=== PATIENT | male | born 1960 | race African-American/Black ===

== ENCOUNTER 2018-03-25 07:48 | Day surgery (SDC) | payer MEDICARE, MEDICAID ==
[~2018-03-25] VITALS: Ht 170.2 cm; Wt 54.5 kg
--- NOTE | ~2018-03-25 | OP ---
PATIENT NAME: GRETA BURTON MEDICAL RECORD: [id number] :64 LOCATION:[facility] ADMISSION DATE: SURGEON: MILES SAVAGE DO DATE OF OPERATION: 03/25/2018 PROCEDURE: Colonoscopy with polypectomy and biopsies. INDICATIONS FOR PROCEDURE: Diarrhea and generalized abdominal pain. SCOPE: BONESUPPORT video pediatric colonoscope. MEDICATIONS: Propofol 500 mg IV per anesthesia. WITHDRAWAL TIME: 34 minutes. ESTIMATED BLOOD LOSS: Minimal. COMPLICATIONS: None. FINDINGS: Informed consent was given. The patient was made comfortable with the above medication. After reaching an adequate level of sedation by slow IV push, the patient was placed on his left side. A digital rectal examination was performed and was normal. The endoscope was then advanced under direct visualization through the rectum to the terminal ileum. The endoscope was slowly withdrawn and mucosa was carefully examined. The prep quality was fair. There were multiple polyps visualized on today's examination. The first 2 were located in the cecum. These were both benign appearing and sessile and ranged in size from 1-3 mm in diameter. They were both removed using hot forceps in 1 piece and completely retrieved. In the ascending colon, there was a single benign appearing sessile polyp, which measured approximately 6 mm in diameter. It was removed using hot snare in 1 piece and completely retrieved. In the transverse colon, there was a single polyp which was benign appearing and sessile and measured approximately 6 mm in diameter. It was removed using hot snare in 1 piece and completely retrieved. In the descending colon, there were four separate polyps. These were of mixed type. One was a flat polyp measuring approximately 9 mm in diameter. It was removed using hot snare in 1 piece and completely retrieved. There was a small defect left from this polyp, so a single endoclip was placed for tissue positioning. This maneuver was successful. There were 3 other polyps which were larger and sessile. They ranged in size from 7 mm to 1 cm. They were all removed using a hot snare. They were all completely removed. Two of these polyps were retrieved and the other was not. In the rectum, there were 2 more sessile polyps, which were benign appearing. They measured approximately 3-5 mm in diameter. They were removed using hot snare in 1 piece and completely retrieved. During this study, there were also random biopsies taken throughout the colon and stool collected for stool study purposes regarding the diarrhea. Retroflexion was performed in the rectum with a normal appearing rectal wall. The endoscope was withdrawn from the patient. The patient tolerated the procedure well and there were no complications. IMPRESSION: 1. Multiple polyps as described above, removed using a combination of hot forceps and a hot snare. 2. Otherwise, normal colonoscopy. Random biopsies were taken and stool was collected for further stool studies. OPERATIVE REPORT [id number] GRETA BURTON PLAN AND RECOMMENDATIONS: 1. Discharge home when recovery parameters are met. 2. Follow up biopsy specimen results. 3. Continue current medications. 4. Recall colonoscopy in 2 years for further surveillance of personal history of polyps. 5. Recommend an upper endoscopy to further evaluate the patient's symptoms. If both endoscopies are negative, a trial of dicyclomine or another anticholinergic could be considered or some cholestyramine 4 grams p.o. b.i.d. TRANSINT:[id number] Voice Confirmation ID: [id number] DOCUMENT ID: [id number] MILES SAVAGE DO at 1255 CC: [id number] DICTATION DATE: 03/25/18 1201 CLIMATE CHANGE ANALYST: 03/25/18 1223 [facility] [address] [place] [address]
[~2018-03-25 07:48] MED LIST: BUMEX2 MG PO; CARAFATE1 G PO; CLARITIN 10 MG10 MG PO; COREG25 MG PO; COZAAR50 MG PO; GABAPENTIN100 MG PO; HUMALOG 30100 UNITS/ SC; LEVEMIR100 U/M1 SC; LIPITOR40 MG PO; MEGACE40 MG PO; METOLAZONE5 MG PO; PROTONIX40 MG PO; REGLAN10 MG; VITAMIN D250000 UNIT PO
[2018-03-25 08:31] LABS: ANION GAP 12.3 mmol/L (8-16); CALCIUM 9.8 mg/dL (8.5-10.1); CARBON DIOXIDE 29.4 mmol/L (21.0-32.0); CREATININE - SERUM 5.1 mg/dL (0.6-1.3); POTASSIUM - SERUM 3.7 mmol/L (3.5-5.1)
[2018-03-25 09:57] VITALS: Ht 170.2 cm; Wt 54.5 kg
== END 2018-03-25 13:35 | disposition home or self-care (01) ==
LOC: D.OPS 07:48
PROVIDERS: Anesthesiology
DX: R19.7 Diarrhea, unspecified (principal); R10.9 Unspecified abdominal pain; K63.5 Polyp of colon

== ENCOUNTER 2018-06-17 07:07 | Day surgery (SDC) | payer MEDICARE, MEDICAID ==
[~2018-06-17] VITALS: Ht 170.2 cm; Wt 56.8 kg
--- NOTE | ~2018-06-17 | OP ---
PATIENT NAME: GRETA BURTON MEDICAL RECORD: [id number] :64 LOCATION:[facility] ADMISSION DATE: SURGEON: MILES SAVAGE DO DATE OF OPERATION: 06/17/2018 PROCEDURE: Colonoscopy with polypectomy and biopsies. INDICATIONS FOR PROCEDURE: Personal history of colon polyps. 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 SCOPE: Olympus video pediatric colonoscope. MEDICATIONS: Propofol 300 mg IV per anesthesia. WITHDRAWAL TIME: 23 minutes. ESTIMATED BLOOD LOSS: Minimal. COMPLICATIONS: None. FINDINGS: Informed consent was given. The patient was made comfortable with the above medication. After reaching an adequate level of sedation by slow IV push, the patient was placed on his left side. A digital rectal examination was performed and was normal. The endoscope was advanced under direct visualization through the rectum to the cecum, confirmed by the presence of the appendiceal orifice and ileocecal valve. The endoscope was slowly withdrawn and mucosa was carefully examined. There was a single diverticulum visualized in the descending colon. A benign appearing sessile polyp was visualized in the transverse colon. It was removed using hot forceps. In the descending colon, a previous polypoid site was visualized. This site was biopsied with cold forceps and the entire area was cauterized using hot forceps following the biopsy. Retroflexion was not performed on this examination due to difficulty with the maneuver and a small rectal vault. The mucosa was visualized and there is grade I internal hemorrhoids without active bleeding present. The endoscope was withdrawn from the patient. The patient tolerated the procedure well and there were no complications. IMPRESSION: 1. Transverse colon polyp removed using hot forceps. 2. Previous descending colon polyp site, which was biopsied and the area was cauterized. 3. Mild diverticulosis. 4. Grade I internal hemorrhoids without bleeding. PLAN AND RECOMMENDATIONS: 1. Discharge home when recovery parameters are met. 2. Follow up biopsy specimen results. 3. High fiber diet. 4. Continue current medications. 5. Recall colonoscopy in 1-2 years for continued surveillance with personal history of polyps with a history of high-grade dysplasia. TRANSINT:[id number] Voice Confirmation ID: [id number] DOCUMENT ID: [id number] OPERATIVE REPORT [id number] BURTON,GRETA MILES HARO DO at 1300 CC: [id number] DICTATION DATE: 06/17/18 0954 CARDIAC TECHNOLOGIST: 06/17/18 1115 [facility] 06/17/18 [facility] [address] [id number]
[2018-06-17 07:45] LABS: ANION GAP 14.8 mmol/L (8-16); CALCIUM 9.3 mg/dL (8.5-10.1); CARBON DIOXIDE 27.9 mmol/L (21.0-32.0); CREATININE - SERUM 5.3 mg/dL (0.6-1.3); POTASSIUM - SERUM 3.7 mmol/L (3.5-5.1)
[2018-06-17 07:53] LABS: APTT 35.9 SECONDS (22.8-39.4); INR 1.22 (0.85-1.17); PROTIME 14.9 SECONDS (11.6-15.0)
[2018-06-17 07:58] LABS: BASOPHILS 0.6 % (0-2); EOSINOPHILS 0.4 % (0-7); HEMATOCRIT 35.6 % (42.0-54.0); LYMPHOCYTES 23.6 % (15-50); MCH 32.1 pg (26.0-34.0); MCHC 33.7 g/dL (31.0-37.0); MCV 95.2 fL (80.0-100.0); MEAN PLATELET VOLUME 12.1 fL (7.4-10.4); MONOCYTES 9.3 % (2-11); NEUTROPHILS 66.1 % (40-80); PLATELET COUNT 118 10x3/uL (130-400); RBC 3.74 10x6/uL (4.20-6.10); RDW 14.5 % (11.5-14.5); WBC 4.8 10x3/uL (4.8-10.8)
[2018-06-17] MEDS ORDERED: PLAVIX75 MG PO (08:49)
[2018-06-17 08:55] VITALS: BP 151/77; Ht 170.2 cm; Wt 56.8 kg
== END 2018-06-17 11:00 | disposition home or self-care (01) ==
LOC: D.OPS 07:07
PROVIDERS: Anesthesiology
DX: K63.5 Polyp of colon (principal); K57.90 Diverticulosis of intestine, part unspecified, without perforation or abscess without bleeding

== ENCOUNTER 2021-02-16 11:17 | Emergency (ER) | payer MEDICARE ==
[~2021-02-16] VITALS: Ht 170.2 cm; Wt 57.7 kg
[~2021-02-16 11:17] MED LIST changes: +PLAVIX75 MG PO
[2021-02-16 11:45] VITALS: BP 126/64; Ht 170.2 cm; Wt 57.7 kg
[2021-02-16 12:15] LABS: BASOPHILS 0.5 % (0-2); EOSINOPHILS 0 % (0-7); HEMATOCRIT 37.8 % (42.0-54.0); HEMOGLOBIN 12.3 g/dL (13.5-17.5); LYMPHOCYTES 3.1 % (15-50); MCHC 32.6 g/dL (31.0-37.0); MCV 92.1 fL (80.0-100.0); MEAN PLATELET VOLUME 10.3 fL (7.4-10.4); MONOCYTES 4.4 % (2-11); RDW 16.5 % (11.5-14.5); WBC 16.8 10x3/uL (4.8-10.8)
[2021-02-16 12:20] LABS: PLATELET COUNT 107 10x3/uL (130-400)
[2021-02-16] MEDS ORDERED: CLEOCIN HCL300 MG PO (12:28)
[2021-02-16] MEDS ORDERED: CEPHALEXIN500 M1 PO (12:28)
[2021-02-16 12:30] LABS: ANION GAP 15.4 mmol/L (8-16); CALCIUM 8.1 mg/dL (8.5-10.1); CARBON DIOXIDE 27.7 mmol/L (21.0-32.0); CREATININE - SERUM 6.2 mg/dL (0.6-1.3); POTASSIUM - SERUM 3.1 mmol/L (3.5-5.1)
[2021-02-16 12:37] LABS: ALBUMIN 2.8 g/dL (3.4-5.0); BILIRUBIN - TOTAL 1.25 mg/dL (0.2-1.3); PROTEIN - SERUM 7.3 g/dL (6.4-8.2)
== END 2021-02-16 13:04 | disposition home or self-care (01) ==
LOC: D.ER 11:17
PROVIDERS: Family Medicine
DX: L03.032 Cellulitis of left toe (principal); E11.9 Type 2 diabetes mellitus without complications; I11.0 Hypertensive heart disease with heart failure; I50.9 Heart failure, unspecified; J45.909 Unspecified asthma, uncomplicated; Z79.4 Long term (current) use of insulin

== ENCOUNTER → 2021-02-18 12:22 | Outpatient (CLI) | payer MEDICARE ==
[2021-02-16 11:45] VITALS: BMI 19.9
[~2021-02-18 12:22] MED LIST changes: +CEPHALEXIN500 M1 PO; +CLEOCIN HCL300 MG PO
== END | disposition home or self-care (01) ==
LOC: D.CT 12:22
PROVIDERS: ATTEND Podiatrist Foot & Ankle Surgery
DX: I73.9 Peripheral vascular disease, unspecified (principal); I70.212 Atherosclerosis of native arteries of extremities with intermittent claudication, left leg